=== PATIENT | female | born 1990 | race Caucasian/White ===

== ENCOUNTER → 2016-10-31 | Outpatient (CLI) | payer OTHER ==
[~2016-10-31] MED LIST: IBUP800T PO; OXYC-302 PO; prenatal gummies PO
== END | disposition home or self-care (01) ==
LOC: CFH 10:33
PROVIDERS: ATTEND Obstetrics & Gynecology
DX: N63 Unspecified lump in breast (principal)

== ENCOUNTER → 2016-11-10 | Outpatient (CLI) | payer OTHER ==
[~2016-11-10] MED LIST changes: +LIDOCAINE 1%-EPI 1:100K, 20ML ONE; +SODIUM BICARBONATE 4.2%, 5ML ONE
== END | disposition home or self-care (01) ==
LOC: CFH 12:20
PROVIDERS: ATTEND Obstetrics & Gynecology
DX: N63 Unspecified lump in breast (principal)
CPT/HCPCS: 19083; 19084; 88305; J3490

== ENCOUNTER 2016-11-23 09:42 | Day surgery (SDC) | payer OTHER ==
[2016-11-22 09:34] VITALS: BP 111/76
[~2016-11-23] VITALS: Ht 172.7 cm; Wt 51.0 kg
[~2016-11-23 09:42] MED LIST changes: -LIDOCAINE 1%-EPI 1:100K, 20ML ONE; +None per pt; -SODIUM BICARBONATE 4.2%, 5ML ONE
[2016-11-23] MEDS ORDERED: SODIUM BICARBONATE 4.2%, 5ML ONE (10:30)
[2016-11-23] MEDS ORDERED: LIDOCAINE 1%, 20ML ONE (10:30)
[2016-11-23] MEDS ORDERED: LACTATED RINGERS 1,000 ML IV SCH ×2 (11:43→12:10)
[2016-11-23 12:06] LABS: HCG UR OBC PASS
[2016-11-23] MEDS ORDERED: LIDOCAINE 1%, 2ML SQ PRN (12:30)
[2016-11-23] MEDS ORDERED: BUPIVACAINE/PF-EPI 0.5% 1:200K ONE (13:56)
[2016-11-23] MEDS ORDERED: LIDOCAINE/PF 1%, 30ML ONE (13:56)
[2016-11-23] MEDS ORDERED: FENTANYL PF 100 MCG/2ML ONE ×2 (13:59→15:47)
[2016-11-23] MEDS ORDERED: MIDAZOLAM 1 MG/ML, 2ML ONE (13:59)
[2016-11-23] MEDS ORDERED: LIDOCAINE-MPF 2% ,5ML ONE (14:08)
[2016-11-23] MEDS ORDERED: MIDAZOLAM 1 MG/ML, 2ML IV PRN (14:30)
[2016-11-23] MEDS ORDERED: HYDROmorphone 1 MG/ML, 1ML IV PRN (14:30)
[2016-11-23] MEDS ORDERED: PROMETHAZINE 25 MG/ML, 1ML IV PRN (14:30)
[2016-11-23] MEDS ORDERED: OXYcodone 5 MG/5 ML ORAL.SOL UDC PO PRN (14:30)
[2016-11-23] MEDS ORDERED: hydrALAzine 20 MG/ML, 1ML IV PRN (14:30)
[2016-11-23] MEDS ORDERED: ONDANSETRON 2MG/ML, 2ML IVPush PRN ×2 (14:30→16:00)
[2016-11-23] MEDS ORDERED: MEPERIDINE/PF 25MG/0.5ML IVPush PRN (14:30)
[2016-11-23] MEDS ORDERED: LABETALOL 5MG/ML, 20ML IV PRN (14:30)
[2016-11-23] MEDS ORDERED: ALBUTEROL SULFATE 2.5 MG/3 ML NPPB PRN (14:30)
[2016-11-23] MEDS ORDERED: ACETAMINOPHEN 325 MG TABLET PO PRN (14:30)
[2016-11-23] MEDS ORDERED: PROPOFOL 10 MG/ML, 20ML ONE (14:31)
[2016-11-23] MEDS ORDERED: DEXAMETHASONE 4 MG/ML, 1ML ONE (14:31)
[2016-11-23] MEDS ORDERED: ONDANSETRON 2MG/ML, 2ML ONE (14:31)
[2016-11-23] MEDS ORDERED: CEFAZOLIN 1,000 MG ONE (14:31)
[2016-11-23] MEDS ORDERED: ROCURONIUM 10 MG/ML ONE (14:31)
[2016-11-23] MEDS ORDERED: SUCCINYLCHOLINE 20 MG/ML, 10ML ONE (14:31)
[2016-11-23] MEDS ORDERED: MEPERIDINE/PF 25MG/0.5ML ONE (15:46)
[2016-11-23] MEDS ORDERED: ACETAMINOPHEN 650 MG/20.3 ML UDC ONE (15:47)
[2016-11-23] MEDS ORDERED: OXYcodone 5 MG/5 ML ORAL.SOL UDC ONE (15:48)
[2016-11-23] MEDS: FENTANYL PF 100 MCG/2ML IV PRN ×3 (15:53→16:21)
[2016-11-23] MEDS ORDERED: morphine SULFATE 10 MG/ML, 1ML IVPush PRN (16:00)
[2016-11-23] MEDS ORDERED: HYDROcodone/APAP 5/325 TABLET PO PRN (16:00)
[2016-11-23] MEDS ORDERED: KETOROLAC 30 MG/1 ML IVPush PRN (16:00)
[2016-11-23] MEDS ORDERED: HYDROmorphone 2 MG/ML, 1ML ONE (16:33)
== END 2016-11-23 18:30 | disposition home or self-care (01) ==
LOC: CFH 09:42 → OUT 18:30
PROVIDERS: ATTEND Surgery
DX: D24.1 Benign neoplasm of right breast (principal); J45.909 Unspecified asthma, uncomplicated
CPT/HCPCS: 19125; 19285; 81025; 88307; G0206; J0330; J0690; J1100; J1170; J1885; J2175; J2250; J2405; J2704; J3010; J3490; J7120